=== PATIENT | male | born 1990 | race Caucasian/White ===

== ENCOUNTER 2024-06-05 18:43 | Inpatient (IN) | payer MEDICAID ==
[~2024-06-05] VITALS: Ht 182.9 cm; Wt 63.2 kg
[2024-06-05] MEDS ORDERED: HALOPERIDOL 5 MG TABLET PO PRN (19:00)
[2024-06-05] MEDS ORDERED: PNEUMOCOCCAL VACCINE POLYVALENT 0.5 ML SYRINGE [PPSV23] IM. ONE (19:45)
[2024-06-05 22:39] VITALS: BP 104/59; PULSE 62; RESP 18; TEMP 97.7; O2SAT 95
[2024-06-06 08:03] VITALS: BP 107/70; PULSE 75; RESP 15; TEMP 98.4; O2SAT 98
[2024-06-06 08:44] LABS: BASOPHILS % (AUTO) 0.5 % (0.0-2.0); EOSINOPHILS % (AUTO) 3.5 % (1.0-6.0); HEMOGLOBIN 13.2 g/dL (13.5-17.5); LYMPHOCYTES # (AUTO) 2.1 K/uL (1.0-4.8); LYMPHOCYTES % (AUTO) 36.9 % (22.0-44.0); MEAN CORPUSCULAR HEMOGLOBIN 30.6 pg (26.0-34.0); MEAN CORPUSCULAR VOLUME 93 fL (80-100); MONOCYTES # (AUTO) 0.4 K/uL (0.1-1.0); MONOCYTES % (AUTO) 7.5 % (2.0-9.0); NEUTROPHILS # (AUTO) 2.9 K/uL (1.8-7.7); NEUTROPHILS % (AUTO) 51.6 % (40.0-70.0); PLATELET COUNT (AUTO) 260 K/uL (150-450); RED BLOOD CELL COUNT(AUTO) 4.32 MIL/uL (4.50-5.90); RED CELL DISTRIBUTION WIDTH 13.4 % (11.5-14.5); WHITE BLOOD COUNT (AUTO) 5.6 K/uL (4.5-11.0)
[2024-06-06 09:03] LABS: HEMOGLOBIN A1C 5.3 % (3.8-5.6)
[2024-06-06 09:17] LABS: ALANINE AMINOTRANSFERASE 25 U/L (12-78); ALBUMIN 3.7 g/dL (3.4-5.0); ALKALINE PHOSPHATASE 55 U/L (46-116); ASPARTATE AMINOTRANSFERASE 15 U/L (15-37); BILIRUBIN,TOTAL 0.3 mg/dL (0.1-1.0); CALCIUM, TOTAL 9.1 mg/dL (8.8-10.5); CHLORIDE 105 mmol/L (98-107); CHOL/HDL RATIO 4.4 (4.2-7.3); CHOLESTEROL 208 mg/dL (131-200); CREATININE 0.92 mg/dL (0.60-1.30); FREE T4 (FREE THYROXINE) 0.95 ng/dL (0.76-1.46); GLOMERULAR FILTR. RATE CALC > 60 mL/min (>60); GLUCOSE,RANDOM 85 mg/dL (70-110); HDL CHOLESTEROL 47 mg/dL (40-60); LDL CHOL (CALC.) 141 mg/dL (0-130); POTASSIUM 4.1 mmol/L (3.5-5.1); SODIUM SERUM 140 mmol/L (136-145); THYROID STIMULATING HORMONE 0.85 uIU/mL (0.36-3.74); TOTAL PROTEIN, SERUM 6.8 g/dL (6.4-8.2); TRIGLYCERIDES 102 mg/dL (15-150); UREA NITROGEN, BLOOD 23 mg/dL (7-18)
[2024-06-06 09:21] LABS: ANION GAP 6 mmol/L (8-16); CARBON DIOXIDE 29 mmol/L (22-29)
[2024-06-06] MEDS ORDERED: PETROLATUM,WHITE 28 GM JELLY TP PRN (11:45)
[2024-06-06] MEDS ORDERED: ONDANSETRON HCL 4 MG TABLET PO PRN (11:45)
[2024-06-06] MEDS ORDERED: OMEPRAZOLE 20 MG CAPSULE PO PRN (11:45)
[2024-06-06] MEDS ORDERED: MAGNESIUM HYDROXIDE SUSPENSION 30 ML UDCUP PO PRN (11:45)
[2024-06-06] MEDS ORDERED: DOCUSATE SODIUM 100 MG CAPSULE PO PRN (11:45)
[2024-06-06] MEDS ORDERED: BACITRACIN 28 GM OINTMENT TP PRN (11:45)
[2024-06-06] MEDS ORDERED: ALBUTEROL SULFATE HFA 90 MCG/PUFF 8 GM INHALER IH PRN (11:45)
[2024-06-06] MEDS ORDERED: CloNIDine HCL 0.1 MG TABLET PO PRN (11:45)
[2024-06-06] MEDS ORDERED: ACETAMINOPHEN 325 MG TABLET PO PRN (11:45)
[2024-06-06] MEDS ORDERED: MAG HYDROX/ALUMINUM HYD/SIMETH ES 30 ML SUSPENSION UDCUP PO PRN (11:45)
[2024-06-06] MEDS ORDERED: IBUPROFEN 600 MG TABLET PO PRN (11:45)
[2024-06-06] MEDS ORDERED: BENZOCAINE/MENTHOL LOZENGE PO PRN (11:45)
[2024-06-06] MEDS ORDERED: LOPERAMIDE HCL 2 MG CAPSULE PO PRN (11:45)
[2024-06-06] MEDS: RisperiDONE 1 MG TABLET PO SCH (16:44)
[2024-06-06 20:49] VITALS: BP 113/67; PULSE 80; RESP 16; TEMP 97.6; O2SAT 99
[2024-06-06] MEDS: ZOLPIDEM TARTRATE 10 MG TABLET PO PRN (21:00)
[2024-06-07 09:10] VITALS: BP 110/52; PULSE 73; RESP 16; TEMP 98.2; O2SAT 98
[2024-06-07 11:23] LABS: APPEARANCE,URINE HAZY (CLEAR); BILIRUBIN,URINE NEGATIVE (NEGATIVE); COLOR,URINE LIGHT YELLOW (YELLOW); GLUCOSE, URINE (UA) NEGATIVE (NEGATIVE); KETONES,URINE NEGATIVE (NEGATIVE); LEUKOCYTE ESTERASE ,URINE NEGATIVE (NEGATIVE); NITRATE,URINE NEGATIVE (NEGATIVE); OCCULT BLOOD,URINE NEGATIVE (NEGATIVE); PROTEIN,URINE NEGATIVE (NEGATIVE); SPECIFIC GRAVITIY, URINE 1.026 (1.003-1.030); UROBILINOGEN,URINE <=1.0 mg/dL (<=1.0)
[2024-06-07 11:56] LABS: ALCOHOL, URINE DRUG SCREEN NEGATIVE (NEGATIVE); AMPHET/METH SCREEN,URINE NEGATIVE (NEGATIVE); BARBITURATE SCREEN, URINE NEGATIVE (NEGATIVE); BENZODIAZEPINES SCREEN,URINE NEGATIVE (NEGATIVE); CANNABINOID SCREEN,URINE NEGATIVE (NEGATIVE); COCAINE SCREEN,URINE NEGATIVE (NEGATIVE); METHADONE SCREEN, URINE NEGATIVE (NEGATIVE); OPIATE SCREEN,URINE NEGATIVE (NEGATIVE); PHENCYCLIDINE SCREEN,URINE NEGATIVE (NEGATIVE)
[2024-06-07] MEDS: LORazepam 2 MG TABLET PO PRN (17:19)
[2024-06-07 20:35] VITALS: BP 91/73; PULSE 75; RESP 16; TEMP 98.4; O2SAT 99
[2024-06-08 09:28] VITALS: BP 114/59; PULSE 66; RESP 14; TEMP 98.4; O2SAT 97
[2024-06-08 09:39] VITALS: BP 114/59; PULSE 66; RESP 14; TEMP 98.4
[2024-06-08 20:18] VITALS: BP 121/78; PULSE 85; RESP 18; TEMP 97.3; O2SAT 98
[2024-06-09 09:19] VITALS: BP 120/81; PULSE 67; RESP 17; TEMP 98.1; O2SAT 98
[2024-06-09 21:44] VITALS: BP 115/73; PULSE 84; RESP 18; TEMP 98.2; O2SAT 96
[2024-06-10 10:39] VITALS: BP 120/74; PULSE 81; RESP 12; TEMP 97.6; O2SAT 97
[2024-06-10] MEDS ORDERED: RISP-31 PO (12:53)
== END 2024-06-10 14:20 | disposition home or self-care (01) | DRG 750 ==
LOC: B2S 18:56 → B3A 21:51
PROVIDERS: ADMIT Psychiatry & Neurology Psychiatry; ATTEND Psychiatry & Neurology Psychiatry
DX: F20.9 Schizophrenia, unspecified (principal); R45.851 Suicidal ideations; F14.10 Cocaine abuse, uncomplicated; F15.10 Other stimulant abuse, uncomplicated; F32.A Depression, unspecified; F41.9 Anxiety disorder, unspecified; G47.00 Insomnia, unspecified; K59.00 Constipation, unspecified; Z72.0 Tobacco use; Z88.8 Allergy status to other drugs, medicaments and biological substances
CPT/HCPCS: 80053; 80061; 80307; 81003; 83036; 84439; 84443; 85025

== ENCOUNTER 2024-09-23 13:46 | Emergency (ER) | payer MEDICAID, OTHER ==
[~2024-09-23] VITALS: Ht 182.9 cm; Wt 59.1 kg
[~2024-09-23 13:46] MED LIST: RISP-31 PO
[2024-09-23 13:49] VITALS: BP 168/74; PULSE 71; RESP 18; TEMP 98.3; O2SAT 97
== END 2024-09-23 18:23 | disposition home or self-care (01) ==
LOC: EMS 13:46
DX: S52.121A Displaced fracture of head of right radius, initial encounter for closed fracture (principal); M25.521 Pain in right elbow; M79.601 Pain in right arm; F20.9 Schizophrenia, unspecified; Z88.1 Allergy status to other antibiotic agents; Z88.8 Allergy status to other drugs, medicaments and biological substances; Z98.890 Other specified postprocedural states; W22.8XXA Striking against or struck by other objects, initial encounter; Y93.89 Activity, other specified; Y92.89 Other specified places as the place of occurrence of the external cause; Y99.8 Other external cause status
CPT/HCPCS: 29105; 99284; 73080-TC; 73110-TC; Z7502

== ENCOUNTER 2024-10-19 20:48 | Emergency (ER) | payer OTHER ==
[~2024-10-19] VITALS: Ht 182.9 cm; Wt 68.2 kg
[2024-10-20 00:44] VITALS: BP 119/63; PULSE 71; RESP 15; TEMP 97.3; O2SAT 98
== END 2024-10-20 01:12 | disposition home or self-care (01) ==
LOC: EMS 20:48
DX: S42.401A Unspecified fracture of lower end of right humerus, initial encounter for closed fracture (principal); F20.9 Schizophrenia, unspecified; F17.210 Nicotine dependence, cigarettes, uncomplicated; Z88.1 Allergy status to other antibiotic agents; Z98.890 Other specified postprocedural states; X58.XXXA Exposure to other specified factors, initial encounter; Y93.89 Activity, other specified; Y92.89 Other specified places as the place of occurrence of the external cause; Y99.8 Other external cause status
CPT/HCPCS: 29105; 99283